=== PATIENT | male | born 1955 | race Caucasian/White ===

== ENCOUNTER 2021-07-04 14:08 | Emergency (ER) | payer OTHER, MEDICARE ==
[2021-07-04] MEDS ORDERED: CEPHALEXIN500 MG PO (16:29)
== END 2021-07-04 16:51 | disposition home or self-care (01) ==
LOC: FER 14:08
DX: S01.312A Laceration without foreign body of left ear, initial encounter (principal); R03.0 Elevated blood-pressure reading, without diagnosis of hypertension; W11.XXXA Fall on and from ladder, initial encounter; W23.1XXA Caught, crushed, jammed, or pinched between stationary objects, initial encounter